=== PATIENT | female | born 1995 | race Caucasian/White ===

== ENCOUNTER 2019-07-13 08:46 | Day surgery (SDC) | payer OTHER ==
[~2019-07-13 08:46] MED LIST: ALBU90OI INH; BACL10 PO; BIRTH CONTROL PILLS; Bactrim Ds Tab1 EACH PO; CEPH500 PO; DIAZ10 PO; DIAZ5 PO; HYDR120LO TOP; HYDR1TAB94 PO; IBUP800 PO; METR500 PO; NAPR500 PO; Naprosyn500 MG PO; Naproxen500 MG PO; PRED10 PO; PRENATAL CAPLE1 EACH PO; PROM25 PO; Percocet 10-321 EACH PO; Percocet 5-3251 EACH PO; RXHYD5325 PO; RXPROM25 PO; SPACE CHAMBER1 EACH MC; SULTRIDS PO; Verotin-Gr Cap1 EACH PO
--- NOTE | 2019-07-13 10:51 | NUR ---
07/13/19 1051 Aster Burton ORS.JAR UPPER PREP ORSC.HSR LOWER PREP
--- NOTE | 2019-07-13 13:00 | NUR ---
07/13/19 1300 rPiscilla Chance PT TRANSFERRED INTO RECLINER WITHOUT DIFFICULTY. CLEAN PAD PROVIDED. ABDOMINAL DRESSINGS X3 AND RAHEEM PAD CDI. ALBERT AT CHAIRSIDE. PT MEDICATED FOR PAIN AND NAUSEA PER ORDERS. NAUSEA RESOLVED PER PT. PT C/O 4/10 CRAMPING IN HER ABDOMEN. WARM BLANKET PROVIDED ACROSS ABDOMEN. PT TOLERATING PO FLUIDS AND CRACKERS WELL
== END 2019-07-13 13:38 | disposition home or self-care (01) ==
LOC: ORSCSDS 08:46
PROVIDERS: Obstetrics & Gynecology
PROC: 0U5F4ZZ Destruction of Cul-de-sac, Percutaneous Endoscopic Approach (ICD-10-PCS; principal; 2019-07-13 10:00)
PROC: 0U514ZZ Destruction of Left Ovary, Percutaneous Endoscopic Approach (ICD-10-PCS; principal; 2019-07-13 10:00)
DX: N83.202 Unspecified ovarian cyst, left side (principal); N94.6 Dysmenorrhea, unspecified; N80.3 Endometriosis of pelvic peritoneum; N94.10 Unspecified dyspareunia; N83.8 Other noninflammatory disorders of ovary, fallopian tube and broad ligament; Z87.891 Personal history of nicotine dependence
CPT/HCPCS: 88108; 88305; J0171; J0690; J1100; J1885; J2250; J2370; J2405; J2704; J2710; J3010; J7120

== ENCOUNTER → 2020-03-12 | Outpatient (CLI) | payer OTHER | END | disposition home or self-care (01) | LOC: LAB SHORT 13:47 → LAB SRC 13:47 | DX: N30.00 Acute cystitis without hematuria (principal); R30.0 Dysuria | CPT/HCPCS: 87077; 87086; 87186 ==

== ENCOUNTER 2021-12-18 05:20 | Inpatient (IN) | payer OTHER ==
[~2021-12-18] VITALS: Ht 152.4 cm; Wt 85.0 kg
[2021-12-18 05:50] LABS: BASOPHILS ABSOLUTE AUTO 0.04 K/mm3 (0.00-0.23); BASOPHILS PERCENT AUTO 1 % (0-2); EOSINOPHILS ABSOLUTE AUTO 0.11 K/mm3 (0.00-0.68); EOSINOPHILS PERCENT AUTO 1 % (0-6); Hematocrit 32.9 % (33.0-51.0); Hemoglobin 10.9 g/dL (11.5-16.0); IMMATURE GRAN ABSOLUTE AUTO 0.05 K/mm3 (0.00-0.10); IMMATURE GRAN PERCENT AUTO 1 % (0-1); LYMPHOCYTES ABSOLUTE AUTO 2.64 K/mm3 (0.84-5.20); LYMPHOCYTES PERCENT AUTO 30 % (21-46); MONOCYTES ABSOLUTE AUTO 0.95 K/mm3 (0.16-1.47); MONOCYTES PERCENT AUTO 11 % (4-13); Mean Corpuscular HGB 27.4 pg (26.0-34.0); Mean Corpuscular HGB Conc 33.1 g/dL (31.5-36.5); Mean Corpuscular Volume 83 fL (80-100); Mean Platelet Volume 11.2 fL (9.1-12.4); NEUTROPHILS ABSOLUTE AUTO 4.99 K/mm3 (1.96-9.15); NEUTROPHILS PERCENT AUTO 57 % (41-73); Platelet Count 242 K/mm3 (150-400); RDW Coefficient Variation 13.6 % (11.7-14.2); Red Blood Cell Count 3.98 M/mm3 (3.80-5.20); White Blood Cell Count 8.78 K/mm3 (4.00-11.30)
[2021-12-19 05:59] LABS: Hematocrit 31.3 % (33.0-51.0); Hemoglobin 10.5 g/dL (11.5-16.0); Mean Corpuscular HGB 27.9 pg (26.0-34.0); Mean Corpuscular HGB Conc 33.5 g/dL (31.5-36.5); Mean Corpuscular Volume 83 fL (80-100); Mean Platelet Volume 10.8 fL (9.1-12.4); Platelet Count 233 K/mm3 (150-400); RDW Coefficient Variation 13.9 % (11.7-14.2); RDW Standard Deviation 41.8 fL (35.1-46.3); Red Blood Cell Count 3.77 M/mm3 (3.80-5.20); White Blood Cell Count 13.51 K/mm3 (4.00-11.30)
[2021-12-19] MEDS ORDERED: IBUP800 PO (14:42)
== END 2021-12-19 15:25 | disposition home or self-care (01) | DRG 806 ==
LOC: OBS 05:20 → BC 05:24 → OBS 05:30 → BC 05:32
PROVIDERS: ADMIT Nurse Practitioner Obstetrics & Gynecology
PROC: 10E0XZZ Delivery of Products of Conception, External Approach (ICD-10-PCS; principal; 2021-12-18)
PROC: 3E033VJ Introduction of Other Hormone into Peripheral Vein, Percutaneous Approach (ICD-10-PCS; 2021-12-18)
PROC: 10907ZC Drainage of Amniotic Fluid, Therapeutic from Products of Conception, Via Natural or Artificial Opening (ICD-10-PCS; 2021-12-18)
DX: O48.0 Post-term pregnancy (principal); O99.324 Drug use complicating childbirth; Z37.0 Single live birth; Z3A.40 40 weeks gestation of pregnancy; Z67.10 Type A blood, Rh positive; Z91.040 Latex allergy status; Z91.048 Other nonmedicinal substance allergy status; F12.90 Cannabis use, unspecified, uncomplicated
CPT/HCPCS: 36415; 85025; 85027; 86850; 86900; 86901; A9270; J1885; J2210; J2590; J3010; J7120

== ENCOUNTER → 2022-06-11 | Outpatient (CLI) | payer OTHER ==
[2022-06-11 13:59] LABS: Source, Urine Voided
[2022-06-11 14:46] LABS: Bilirubin, Urine Neg (Neg); Blood, Urine Neg (Neg); Glucose Qualitative, Urine Neg (Neg); Ketones, Urine Neg (Neg); Leukocyte Esterase, Urine Neg (Neg); Nitrite, Urine Neg (Neg); Protein, Urine Neg (Neg); Urobilinogen, Urine NORM (Normal)
[2022-06-11 15:39] LABS: Appearance, Urine Clear (Clear); Color, Urine Yellow (P-Yellow)
== END | disposition home or self-care (01) ==
LOC: LAB 13:58 → LAB SHORT 13:58
PROVIDERS: Registered Nurse
DX: N12 Tubulo-interstitial nephritis, not specified as acute or chronic (principal)
CPT/HCPCS: 81003

== ENCOUNTER 2023-07-14 22:00 | Emergency (ER) | payer OTHER ==
[~2023-07-14] VITALS: Ht 152.4 cm; Wt 53.5 kg
[2023-07-14 23:19] LABS: BASOPHILS ABSOLUTE AUTO 0.05 K/mm3 (0.00-0.23); BASOPHILS PERCENT AUTO 0 % (0-2); EOSINOPHILS ABSOLUTE AUTO 0.08 K/mm3 (0.00-0.68); EOSINOPHILS PERCENT AUTO 1 % (0-6); Hematocrit 39.3 % (33.0-51.0); Hemoglobin 13.3 g/dL (11.5-16.0); IMMATURE GRAN ABSOLUTE AUTO 0.04 K/mm3 (0.00-0.10); IMMATURE GRAN PERCENT AUTO 0 % (0-1); LYMPHOCYTES ABSOLUTE AUTO 3.16 K/mm3 (0.84-5.20); LYMPHOCYTES PERCENT AUTO 24 % (21-46); MONOCYTES ABSOLUTE AUTO 0.99 K/mm3 (0.16-1.47); MONOCYTES PERCENT AUTO 8 % (4-13); Mean Corpuscular HGB 29.9 pg (26.0-34.0); Mean Corpuscular HGB Conc 33.8 g/dL (31.5-36.5); Mean Corpuscular Volume 88 fL (80-100); Mean Platelet Volume 9.5 fL (9.1-12.4); NEUTROPHILS ABSOLUTE AUTO 8.72 K/mm3 (1.96-9.15); NEUTROPHILS PERCENT AUTO 67 % (41-73); Platelet Count 321 K/mm3 (150-400); RDW Coefficient Variation 12.6 % (11.7-14.2); RDW Standard Deviation 40.9 fL (35.1-46.3); Red Blood Cell Count 4.45 M/mm3 (3.80-5.20); White Blood Cell Count 13.04 K/mm3 (4.00-11.30)
[2023-07-14 23:28] LABS: Source, Urine Clean Catch
[2023-07-14] MEDS ORDERED: Acetaminophen 500 MG Tab PO ONE (23:30)
[2023-07-14] MEDS ORDERED: NS 1,000 ML IV SCH (23:30)
[2023-07-14 23:35] LABS: Bilirubin, Urine Neg (Neg); Blood, Urine 4+ (Neg); Glucose Qualitative, Urine Neg (Neg); Ketones, Urine Neg (Neg); Leukocyte Esterase, Urine 3+ (Neg); Nitrite, Urine Neg (Neg); Protein, Urine 2+ (Neg); Specific Gravity, Urine 1.015 (1.003-1.022); Urobilinogen, Urine NORM (Normal)
[2023-07-14 23:36] LABS: Appearance, Urine Hazy (Clear); Bacteria Many /hpf; Color, Urine Yellow (P-Yellow); Red Blood Cells, Urine 0-2 /hpf (0-2); Squamous Epithelial Cells Many /hpf (Few)
[2023-07-14 23:39] LABS: Albumin, Blood 4.3 g/dL (3.4-5.0); Albumin/Globulin Ratio 1.2 (0.8-1.8); Bilirubin, Total 0.3 mg/dL (0.1-1.0); Bun/Creatinine Ratio 22.4 (12.0-20.0); Calcium, Blood 9.9 mg/dL (8.5-10.1); Creatinine, Blood 0.58 mg/dL (0.40-1.00); Globulin, Blood 3.6 g/dL (2.2-4.0); Potassium, Blood 3.7 mmol/L (3.5-5.5); Total Protein, Blood 7.9 g/dL (6.4-8.2)
[2023-07-15 00:15] LABS: Source, Urine Clean Catch
[2023-07-15] MEDS ORDERED: Ketorolac Tromethamine 30mg Vial IV ONE (00:25)
[2023-07-15] MEDS ORDERED: Ondansetron HCl 2 MG / ML 2ML Vial IV ONE (00:25)
[2023-07-15] MEDS ORDERED: Cephalexin Monohydrate 500 MG Cap PO ONE (00:25)
[2023-07-15] MEDS ORDERED: CEPH500 PO (00:32)
[2023-07-15 00:35] LABS: Bilirubin, Urine Neg (Neg); Blood, Urine 2+ (Neg); Glucose Qualitative, Urine Neg (Neg); Ketones, Urine Neg (Neg); Leukocyte Esterase, Urine 1+ (Neg); Nitrite, Urine Neg (Neg); Protein, Urine 2+ (Neg); Urobilinogen, Urine NORM (Normal)
[2023-07-15] MEDS ORDERED: RX Prepack 6 Tabs Oxycodone 5mg UD ONE (00:35)
[2023-07-15 00:45] VITALS: BP 121/77
[2023-07-15 00:54] LABS: Appearance, Urine Hazy (Clear); Color, Urine Yellow (P-Yellow)
[2023-07-15 01:04] LABS: Bacteria Many /hpf; Squamous Epithelial Cells Many /hpf (Few)
[2023-07-15 01:05] LABS: White Blood Cells, Urine 50-100 /hpf (0-5)
== END 2023-07-15 00:50 | disposition home or self-care (01) ==
LOC: ER 22:00
PROVIDERS: Emergency Medicine; Physician Assistant
DX: N39.0 Urinary tract infection, site not specified (principal); E86.0 Dehydration; Z91.040 Latex allergy status; Z91.048 Other nonmedicinal substance allergy status; Z87.891 Personal history of nicotine dependence
CPT/HCPCS: 76770; 80053; 81001; 81025; 85025; 87077; 87086; 87186; 96361; 96374; 96375; 99284-25; A9270; J1885; J2405; J7030

== ENCOUNTER → 2023-07-14 | Outpatient (CLI) | payer OTHER | LOC: LAB 09:00 → LAB SHORT 09:00 | DX: R30.0 Dysuria (principal) | CPT/HCPCS: 87077; 87086; 87186 ==

== ENCOUNTER 2024-04-03 07:05 | Inpatient (IN) | payer OTHER ==
[2024-04-03] VITALS (10 sets, daily range): BP systolic 111–139; BP diastolic 59–76
[~2024-04-03] VITALS: Ht 152.4 cm; Wt 84.1 kg
[2024-04-03] MEDS ORDERED: Lactated Ringer's 1,000 ML IV PRN (07:15)
[2024-04-03] MEDS ORDERED: Methylergonovine Maleate 0.2MG / ML 1ML Amp IM PRN ×2 (07:15→20:25)
[2024-04-03] MEDS ORDERED: Ondansetron HCl 2 MG / ML 2ML Vial IV PRN (07:15)
[2024-04-03] MEDS ORDERED: OXYTOCIN/RINGER'S LACTATE 500 ML IV SCH ×2 (07:15→20:20)
[2024-04-03] MEDS ORDERED: Acetaminophen 500 MG Tab PO PRN (07:15)
[2024-04-03] MEDS ORDERED: Misoprostol 200 MCG Tab BC PRN (07:15)
[2024-04-03] MEDS ORDERED: Lactated Ringer's 1,000 ML IV SCH ×2 (07:15→20:25)
[2024-04-03] MEDS ORDERED: Misoprostol 200 MCG Tab PR PRN ×2 (07:15→20:20)
[2024-04-03] MEDS ORDERED: OXYTOCIN/RINGER'S LACTATE 500 ML IV PRN (07:15)
[2024-04-03] MEDS ORDERED: Oxytocin 10 Unit / ML Vial IM PRN (07:15)
[2024-04-03] MEDS ORDERED: Carboprost Tromethamine 250 MCG/ML 1ML Amp IM PRN (07:15)
[2024-04-03] MEDS ORDERED: Calcium Carbonate 500 MG Tab Chew PO PRN (07:25)
[2024-04-03] MEDS ORDERED: Tranexamic Acid 100 ML IV SCH (07:30)
[2024-04-03 08:17] LABS: BASOPHILS ABSOLUTE AUTO 0.04 K/mm3 (0.00-0.23); BASOPHILS PERCENT AUTO 0 % (0-2); EOSINOPHILS ABSOLUTE AUTO 0.09 K/mm3 (0.00-0.68); EOSINOPHILS PERCENT AUTO 1 % (0-6); Hemoglobin 10.9 g/dL (11.5-16.0); IMMATURE GRAN ABSOLUTE AUTO 0.08 K/mm3 (0.00-0.10); IMMATURE GRAN PERCENT AUTO 1 % (0-1); LYMPHOCYTES ABSOLUTE AUTO 2.12 K/mm3 (0.84-5.20); LYMPHOCYTES PERCENT AUTO 23 % (21-46); MONOCYTES ABSOLUTE AUTO 0.87 K/mm3 (0.16-1.47); MONOCYTES PERCENT AUTO 9 % (4-13); Mean Corpuscular HGB 25.8 pg (26.0-34.0); Mean Corpuscular Volume 78 fL (80-100); NEUTROPHILS PERCENT AUTO 66 % (41-73); Platelet Count 282 K/mm3 (150-400); RDW Coefficient Variation 13.9 % (11.7-14.2); Red Blood Cell Count 4.23 M/mm3 (3.80-5.20)
[2024-04-03] MEDS ORDERED: AMPDEX10CR PO (08:28)
[2024-04-03] MEDS ORDERED: NS 100 ML IV ONE (12:30)
[2024-04-03] MEDS ORDERED: FentaNYL Citrate 50 MCG/ML 2 ML Injection IV ONE (17:35)
[2024-04-03] MEDS ORDERED: FentaNYL Citrate 50 MCG/ML 2 ML Injection IV PRN (17:35)
[2024-04-03] MEDS ORDERED: Witch Hazel/Glycerin PADS TOP PRN (20:20)
[2024-04-03] MEDS ORDERED: OxyCODONE 5 mg/Acetamin 325 mg TABLET PO PRN (20:20)
[2024-04-03] MEDS ORDERED: Docusate Sodium 100 MG Cap PO PRN (20:20)
[2024-04-03] MEDS ORDERED: FLU VACC TS2024-25(6MOS UP)/PF 45 MCG/0.5 ML SYRINGE IM ONE (20:20)
[2024-04-03] MEDS ORDERED: Lanolin Cream TOP PRN (20:25)
[2024-04-03] MEDS ORDERED: Naproxen 500 MG Tab PO PRN (20:25)
[2024-04-03] MEDS ORDERED: Benzocaine/Benzethon Topical Anesthetic Spray 78GM TOP PRN (20:30)
--- NOTE | 2024-04-03 22:25 | NUR ---
PT VOIDED POST DELIVERY
[2024-04-04 00:11] VITALS: BP 123/69
[2024-04-04] MEDS ORDERED: Ketorolac Tromethamine 30mg Vial IV PRN (03:30)
[2024-04-04 05:48] VITALS: BP 102/65
[2024-04-04 06:50] LABS: BASOPHILS ABSOLUTE AUTO 0.03 K/mm3 (0.00-0.23); BASOPHILS PERCENT AUTO 0 % (0-2); EOSINOPHILS ABSOLUTE AUTO 0.07 K/mm3 (0.00-0.68); EOSINOPHILS PERCENT AUTO 1 % (0-6); Hematocrit 27.8 % (33.0-51.0); Hemoglobin 9.2 g/dL (11.5-16.0); IMMATURE GRAN ABSOLUTE AUTO 0.12 K/mm3 (0.00-0.10); IMMATURE GRAN PERCENT AUTO 1 % (0-1); LYMPHOCYTES ABSOLUTE AUTO 2.68 K/mm3 (0.84-5.20); LYMPHOCYTES PERCENT AUTO 18 % (21-46); MONOCYTES ABSOLUTE AUTO 1.16 K/mm3 (0.16-1.47); MONOCYTES PERCENT AUTO 8 % (4-13); Mean Corpuscular HGB 25.7 pg (26.0-34.0); Mean Corpuscular HGB Conc 33.1 g/dL (31.5-36.5); Mean Corpuscular Volume 78 fL (80-100); NEUTROPHILS ABSOLUTE AUTO 10.61 K/mm3 (1.96-9.15); NEUTROPHILS PERCENT AUTO 72 % (41-73); Platelet Count 241 K/mm3 (150-400); RDW Coefficient Variation 13.9 % (11.7-14.2); RDW Standard Deviation 39.6 fL (35.1-46.3); Red Blood Cell Count 3.58 M/mm3 (3.80-5.20); White Blood Cell Count 14.67 K/mm3 (4.00-11.30)
[2024-04-04 07:41] VITALS: BP 128/76
[2024-04-04] MEDS ORDERED: Prenatal Vit/FE Fumarate/FA 1 Tab PO SCH (09:00)
[2024-04-04 11:46] VITALS: BP 136/69
[2024-04-04 15:45] VITALS: BP 129/82
[2024-04-04 19:18] VITALS: BP 127/73
[2024-04-04] MEDS ORDERED: IBU800 MG PO (20:13)
[2024-04-04] MEDS ORDERED: ACET500 PO (20:13)
== END 2024-04-04 20:45 | disposition home or self-care (01) | DRG 807 ==
LOC: BC 07:05 → OBS 07:05 → BC 07:15
PROVIDERS: ADMIT Obstetrics & Gynecology
PROC: 10E0XZZ Delivery of Products of Conception, External Approach (ICD-10-PCS; principal; 2024-04-03)
PROC: 10907ZC Drainage of Amniotic Fluid, Therapeutic from Products of Conception, Via Natural or Artificial Opening (ICD-10-PCS; 2024-04-03)
DX: O99.344 Other mental disorders complicating childbirth (principal); F90.9 Attention-deficit hyperactivity disorder, unspecified type; Z37.0 Single live birth; Z3A.39 39 weeks gestation of pregnancy; Z90.49 Acquired absence of other specified parts of digestive tract; Z98.890 Other specified postprocedural states; Z87.891 Personal history of nicotine dependence; Z87.798 Personal history of other (corrected) congenital malformations; Z91.040 Latex allergy status; Z91.048 Other nonmedicinal substance allergy status; Z79.899 Other long term (current) drug therapy; Z87.42 Personal history of other diseases of the female genital tract; Z86.19 Personal history of other infectious and parasitic diseases; Z87.39 Personal history of other diseases of the musculoskeletal system and connective tissue; Z80.3 Family history of malignant neoplasm of breast; Z80.41 Family history of malignant neoplasm of ovary; Z28.21 Immunization not carried out because of patient refusal
CPT/HCPCS: 36415; 85025; 86850; 86900; 86901; A9270; J1885; J2590; J3010; J7120

== ENCOUNTER → 2024-07-31 | Outpatient (CLI) | payer OTHER ==
[~2024-07-31] MED LIST changes: +ACET500 PO; +AMPDEX10CR PO; +IBU800 MG PO
== END ==
LOC: LAB SHORT 17:05 → LAB 17:05
DX: N89.8 Other specified noninflammatory disorders of vagina (principal)
CPT/HCPCS: 87070; 87077; 87186; 87205